=== PATIENT | male | born 1950 | race Caucasian/White ===

== ENCOUNTER 2023-04-26 10:47 | Outpatient (CLI) | payer MEDICARE, SELFPAY ==
[2023-04-26 11:18] LABS: Hematocrit 46.7 % (42.0-52.0); Hemoglobin 16.3 g/dL (14.0-18.0)
--- NOTE | 2023-04-26 11:22 | ECG_ITS ---
Measurements Intervals [place] Rate: 68 P: 61 VT: 169 QRS: 36 QRSD: 105 T: 30 QT: 391 QTc: 418 Interpretive Statements SINUS RHYTHM ATRIAL PREMATURE COMPLEX BORDERLINE ECG NO PREVIOUS ECG AVAILABLE FOR COMPARISON Electronically Signed On 04-26-2023 12:13:44 CDT by Butch Oconnor D.O.
[2023-04-26 11:29] LABS: Albumin Level 4.6 g/dL (3.5-5.1); Estimated Glomerular Filt Rate > 60
== END 2023-04-26 10:48 | disposition home or self-care (01) ==
LOC: ANHLAB 10:49
PROVIDERS: PCP Internal Medicine; Visit Provider Orthopaedic Surgery
DX: M16.12 Unilateral primary osteoarthritis, left hip (principal); Z92.89 Personal history of other medical treatment
CPT/HCPCS: 36415; 82040; 82565; 85014; 85018; 93005

== ENCOUNTER 2023-06-12 10:54 | Outpatient (CLI) | payer MEDICARE, SELFPAY ==
[2023-06-12 12:15] LABS: Basophils Absolute Auto 0.1 K/mm3 (0.0-0.1); Eosinophils Absolute Auto 0.1 K/mm3 (0-0.3); Eosinophils Percent Auto 2.3 % (0-4.4); Hematocrit 48.9 % (42.0-52.0); Hemoglobin 16.8 g/dL (14.0-18.0); Immature Granulocyte Absolute 0.02 K/mm3 (0.00-0.031); Immature Granulocyte Percent A 0.3 % (0-0.5); Lymphocytes Absolute Auto 1.83 K/mm3 (0.9-3.2); Lymphocytes Percent Auto 30.1 % (18.3-44.2); Mean Corpuscular HGB Conc 34.4 g/dl (32-36); Mean Corpuscular Hemoglobin 32.1 pg (26-34); Mean Corpuscular Volume 93.5 fl (80-100); Mean Platelet Volume 8.8 fl (7.4-10.4); Monocytes Absolute Auto 0.5 K/mm3 (0.1-0.6); Monocytes Percent Auto 7.9 % (2.6-8.5); Neutrophils Absolute Auto 3.5 K/mm3 (1.3-6.7); Neutrophils Percent Auto 58.4 % (45.5-73.1); Platelet Count Result 200 k/mm3 (150-375); Red Blood Count 5.23 M/mm3 (4.6-6.20); Red Cell Distribution Width 12.3 % (11.5-14.5); White Blood Count 6.1 K/mm3 (4.5-10.0)
[2023-06-12 12:22] LABS: Albumin Level 4.5 g/dL (3.5-5.1); Estimated Glomerular Filt Rate > 60; Glucose 109 mg/dL (65-110)
[2023-06-12 12:24] LABS: Urine Cotinine NEGATIVE
[2023-06-12 12:45] LABS: Hemoglobin A1C 5.2 % (<5.7)
== END 2023-06-12 10:55 | disposition home or self-care (01) ==
PROVIDERS: PCP Internal Medicine; Visit Provider Orthopaedic Surgery
DX: Z01.812 Encounter for preprocedural laboratory examination (principal); M16.12 Unilateral primary osteoarthritis, left hip
CPT/HCPCS: 80307; 82040; 82565; 82947; 83036; 85025; 87081

== ENCOUNTER 2023-06-21 02:44 | Day surgery (SDC) | payer MEDICARE, SELFPAY ==
[2023-06-14 08:50] VITALS: BMI 29.9
--- NOTE | 2023-06-14 09:07 | PC.NURSE ---
Report to the Outpatient Waiting Room, entrance under the green pavilion located off [facility], at time _6:30AM on date __06/21/23 . Planned Procedure Time: __8:30AM . Time changes happen often and if your time is changed the preop area will call you the afternoon before. - You and your visitor will be asked to self-screen and do not enter if you have any COVID symptoms. - A mask is optional within the hospital at this time. Patients may have CLEAR LIQUIDS ONLY ON DAY PRIOR TO SURGERY. NOTHING BY MOUTH AFTER MIDNIGHT. Take the following medications with a SIP of water the morning of surgery: ____NONE DO NOT STOP ANY OF YOUR OTHER PRESCRIPTION MEDICATIONS PRIOR TO SURGERY ?EXCEPT THE FOLLOWING Medications to discontinue per physician NONE Date to take last dose Please no make-up, nail nigerian, hairspray, perfume, deodorant, or body powder the day of surgery. No jewelry (including any body piercings) or valuables the day of surgery, leave them at home. Please take a shower or bath the night before, or the morning of, surgery with an antibacterial soap. Wear comfortable, loose fitting clothing. Children are encouraged to wear pajamas. - Jewelry must be removed prior to entering the operating room. Rings and piercings that are not removed may be cut off. - The hospital will not accept responsibility for valuables. - Please leave all valuables, including medications, at home the day of surgery. If you are going home after surgery, a licensed limousine driver must drive you home. - NO public transportation without another adult if you receive anesthesia. - We recommend that an adult stay with you for 24 hours following discharge. - We also recommend that you do not drive, make important decision, drink alcoholic beverages, or take any drugs that were not prescribed by your health care provider for at least 24 hours after your discharge time. Follow any additional instructions given to you from your surgeon. FLEETS ENEMA NIGHT BEFORE AND MORNING OF SURGERY. If you or anyone in your household have experienced Covid symptoms in the past week, please notify your surgeon or the nurse liaison at the phone number below for possible testing. Telephone instructions given to __PATIENT and asked if any additional questions and then verbalized understanding. Patient advised to call surgeon office or pre surgery nurse liaison [phone] if any additional questions.
--- NOTE | 2023-06-20 09:53 | WPDANESEPPF ---
Anes - Initial Pre Proc Eval Procedure: Operation Date: 06/21/23 08:30 Proposed Procedures p Rectal Examination Under Anesthesia, Possible Rubber Band Ligation of Internal Hemorrhoids - Wu Cheung MD Date/Time: 06/20/23 09:53 Surgeon: Wu Cheung MD Pre Op Diagnosis: rectal pain, internal hemorrhoids Patient Data Age: 72 Gender: M Height: 1.83 m Weight: 100 kg Allergies Allergy/AdvReac Type Severity Reaction Status Date / Time No Known Allergies Allergy Verified 06/21/23 06:59 Home Medications Medication Instructions Recorded Confirmed Type lovastatin 20 mg tablet 20 mg PO HS 04/13/23 06/21/23 History acetaminophen 500 mg capsule 1,000 mg PO Q6H PRN Pain 06/12/23 06/21/23 History ibuprofen 200 mg-diphenhydramine 2 cap PO HS 06/12/23 06/21/23 History HCl 25 mg capsule (Ibuprofen PM) ibuprofen 400 mg tablet 400 mg PO Q6H PRN Pain 06/12/23 06/21/23 History meloxicam 7.5 mg tablet 7.5 mg PO PRN PRN Pain 06/12/23 06/21/23 History calcium carbonate 200 mg calcium 200 mg PO BID PRN Indigestion 06/14/23 06/21/23 History (500 mg) chewable tablet (Tums) Patient hx anesthesia problems: none Family hx anesthesia problems: none Results Review: All pre-operative results and documents have been reviewed as part of the pre-operative evaluation. [facility] Past Medical History Medical History High cholesterol History of stress test (~2002) Kidney stones Surgical History Surgical History History of appendectomy (~1961) History of hernia repair (~1960) Hx of excision of dermoid cyst (~2009) Infected Cyst - Back Family History Family History Mother Colon cancer Father Heart disease Social History Social History Smoking status: Never smoker Additional smoking assessment comments: DENIES ANY FORM OF TOBACCO USE Alcohol intake: current Drinks per week: 10 Substance use: never Lack of Transportation: No Lack of Food: Never True Current Housing: I Have Housing Concerned About Future Housing: No Difficulty Paying Gas/Electric Bills: No Difficulty Paying for Meds: No Currently Unemployed: No Education: Master's Degree or Higher Difficulty w/ Childcare or Family Care: No Living arrangements: with family Additional living arrangements comments: SPOUSE Spiritual care concerns: No Anes - Eval Final PreProcedure Day of Procedure 06/20/23 09:53 Patient weight: overweight Heart: regular rate and rhythm Lungs: clear to auscultation Airway: Mallampati scale class II Neurological: alert and oriented Last oral intake: >/= 8 hours ASA classification: II Emergent: no Anesthetic plan: proceed Anesthesia type and monitoring: general ETT and standard monitoring Results Review: All pre-operative results and documents have been reviewed as part of the pre-operative evaluation. Informed Consent: The patient's anesthetic plan and its attendant risks and benefits were discussed with the patient/family/POA. Questions were solicited and answers provided to the satisfaction of the patient/family/POA.
[2023-06-21] VITALS (7 sets, daily range): BP systolic 102–141; BP diastolic 62–80; PULSE 60–79; RESP 11–18; TEMP 36.6–36.8; O2SAT 98–100
[2023-06-21] MEDS: ACETAMINOPHEN 500 MG TABLET 1000 MG PO (07:04)
[2023-06-21] MEDS: LACTATED RINGERS 1,000 ML 30 ML IV CONT ×2 (07:11→09:05)
[2023-06-21] MEDS: KETOROLAC 15 MG/ML VIAL (*BKC) IV PUSH (07:32)
--- NOTE | 2023-06-21 08:00 | WPDHPUPDATE1 ---
History and Physical Update Update Date/Time: 06/21/23 08:00 History and Physical has been reviewed, including an updated exam of the patient. There are NO changes in the patient's condition. Risks, benefits, and alternatives have been discussed and questions answered. Patient agrees to proceed with procedure.
[2023-06-21] MEDS: ceFAZolin 2 GM/D5W 50 ML 2 GM/50 ML BAG IVPB (08:29)
[2023-06-21] MEDS: BUPIVACAINE/EPINEPHRINE 0.25% 10 ML VIAL 30 ML INFILTRATE (08:56)
--- NOTE | 2023-06-21 09:35 | P.OP_ITS ---
Procedure Note - Detailed Date of Procedure 06/21/23 Pre-op Diagnosis rectal pain, internal hemorrhoids Post-op Diagnosis Same Procedure Performed Rectal exam under anesthesia, rubber-band ligation internal hemorrhoids all 3 complexes Surgeon Wu Cheung MD Anesthesia General and Local (0.25% Marcaine with epinephrine) Indications Patient has had complaints of rectal pain and some protrusion of hemorrhoids. He has had no bleeding. Exam showed no external hemorrhoids but some bulky internal hemorrhoidal tissue. He is taken to surgery now for rectal exam under anesthesia and possible rubber-band ligation of internal hemorrhoids. Findings He had internal hemorrhoids at all 3 locations. The largest was in the left lateral but smaller hemorrhoids were noted at the right anterior and right posterior locations. All were rubber-band ligated. There was no evidence of anal canal polyp or malignancy Description of Procedure Patient was taken to surgery and induced into general anesthesia. He was then turned and placed in prone dontae-knife position. The buttocks were taped apart. Prep and drape was carried out. Digital exam was carried out and there were some internal hemorrhoids noted. Small Hill-Nguyen anoscope was introduced. Internal hemorrhoids were noted but no other abnormalities. The left lateral internal hemorrhoid was rubber-band ligated 1st. I went to the patient's right side and then rubber-band ligated both the right anterior and right posterior internal hemorrhoids. No other significant findings were noted. Local anesthetic was infiltrated intra- sphincteric bilaterally using a total 20 cc. Wound was dressed with Xeroform gauze fluffs and tape. Patient was returned to a supine position, awakened extubated and taken to recovery in good condition. Sponge needle counts were correct x2. Estimated Blood Loss -1 Drains No Packing No Pathology None sent Complications No immediate complications Condition Stable Disposition PACU [facility] Billing Surgery - Charge Forward: Surgery Billing (Rectal exam under anesthesia, rubber- band ligation internal hemorrhoids.)
[2023-06-21] MEDS: oxyCODONE HCL (*CRX) 5 MG TAB IR PO (10:16)
--- NOTE | 2023-06-21 10:47 | SUR.PHASEII ---
1020 PATIENT C/O'ING BILAT CALF PAIN. NO REDNESS; STRONG PULSES. PATIENT UP TO WALK IN [place] WHICH HELPED SLIGHTLY. ENCOURAGED TO DO ANKLE EXERCISES TO REDUCE CRAMPING.
== END 2023-06-21 11:06 | disposition home or self-care (01) ==
PROVIDERS: PCP Internal Medicine; Visit Provider Surgery
PROC: (CPT 46221; principal; 2023-06-21 08:30)
DX: K64.8 Other hemorrhoids (principal); E78.00 Pure hypercholesterolemia, unspecified
CPT/HCPCS: 46221; 80307; 82040; 82565; 82947; 83036; 85025; 87081; A9270; C9290; J0330; J0690; J1100; J1885; J2405; J2704; J3010; J7120

== ENCOUNTER 2023-07-11 04:15 | Day surgery (SDC) | payer MEDICARE, SELFPAY ==
[2023-06-12 11:03] VITALS: BMI 29.9
--- NOTE | 2023-06-12 11:30 | PC.NURSE ---
Report to the Outpatient Waiting Room, entrance under the green pavilion located off [facility], at time __0600 on date __07/11/23 . Planned Procedure Time: __0730 . Time changes happen often and if your time is changed the preop area will call you the afternoon before. - You and your visitor will be asked to self-screen and do not enter if you have any COVID symptoms. - A mask is optional within the hospital at this time. Patients may have clear liquids (water, carbonated beverages, clear teas, apple juice) until 3 hours prior to surgery with a maximum of 20 ounces. - No food from midnight until time of surgery - Infants may have breast milk until 4 hours before surgery, infant formula 6 hours prior to surgery. - Children will be allowed to drink immediately following surgery. If applicable, please bring a bottle or sippy cup to assist with drinking. Juice, water, soda, and popsicles are readily available. For infants on formula, please bring formula the day of surgery. Pacifiers are allowed. Take the following medications with a SIP of water the morning of surgery: __NONE DO NOT STOP ANY OF YOUR OTHER PRESCRIPTION MEDICATIONS PRIOR TO SURGERY ?EXCEPT THE FOLLOWING Medications to discontinue per physician __MELOXICAM,IBUPROFEN 7 DAYS PRE OP PER DR DAVIS.LAST DOSE 07/03/23 Please no make-up, nail cambodian, hairspray, perfume, deodorant, or body powder the day of surgery. No jewelry (including any body piercings) or valuables the day of surgery, leave them at home. Please take a shower or bath the night before, or the morning of, surgery with an antibacterial soap. Wear comfortable, loose fitting clothing. Children are encouraged to wear pajamas. - Jewelry must be removed prior to entering the operating room. Rings and piercings that are not removed may be cut off. - The hospital will not accept responsibility for valuables. - Please leave all valuables, including medications, at home the day of surgery. If you are going home after surgery, a licensed bulk delivery driver must drive you home. - NO public transportation without another adult if you receive anesthesia. - We recommend that an adult stay with you for 24 hours following discharge. - We also recommend that you do not drive, make important decision, drink alcoholic beverages, or take any drugs that were not prescribed by your health care provider for at least 24 hours after your discharge time. Follow any additional instructions given to you from your surgeon. If you or anyone in your household have experienced Covid symptoms in the past week, please notify your surgeon or the nurse liaison at the phone number below for possible testing. VERBAL AND WRITTEN instructions given to __PATIENT AND OTILIOE and asked if any additional questions and then verbalized understanding. Patient advised to call surgeon office or pre surgery nurse liaison [phone] if any additional questions.
[2023-06-12 11:49] VITALS: BP 141/84; PULSE 73; RESP 18; TEMP 37.1; O2SAT 99
[2023-07-11] VITALS (17 sets, daily range): BP systolic 112–138; BP diastolic 55–78; PULSE 60–79; RESP 10–18; TEMP 36.1–36.9; O2SAT 92–100
--- NOTE | ~2023-07-11 | XR_ITS ---
EXAMINATION: XR hip LT min 2V DATE: 07/11/2023 10:35 INDICATION: Left hip arthroplasty. Postop. TECHNIQUE: 2 views of left hip were obtained. COMPARISON: Left hip radiographs 04/20/2023 FINDINGS: There is a total left hip arthroplasty in near-anatomic alignment. No fracture. There is ga s in the soft tissues, consistent with recent surgery. IMPRESSION: 1. Total left hip arthroplasty in near-anatomic alignment. Reviewed, dictated and finalized at location A.
[2023-07-11] MEDS: LACTATED RINGERS 1,000 ML 30 ML IV CONT ×2 (06:44→10:09)
[2023-07-11] MEDS: ACETAMINOPHEN 500 MG TABLET 1000 MG PO ×2 (06:51→20:56)
--- NOTE | 2023-07-11 06:59 | WPDANESEPPF ---
Anes - Initial Pre Proc Eval Procedure: Operation Date: 07/11/23 07:30 Proposed Procedures p Left Total Hip Arthroplasty - Rohit Garcia MD Date/Time: 07/11/23 06:59 Surgeon: Rohit Garcia MD Pre Op Diagnosis: primary oa left hip Patient Data Age: 72 Gender: M Height: 1.83 m Weight: 97.2 kg Last Vital Signs Temp 36.3 C L 07/11/23 06:11 Pulse 70 07/11/23 06:11 Resp 16 07/11/23 06:11 BP 137/72 07/11/23 06:11 Pulse Ox 96 07/11/23 06:11 O2 Del Method Room Air 07/11/23 06:11 Allergies Allergy/AdvReac Type Severity Reaction Status Date / Time No Known Allergies Allergy Verified 07/11/23 06:25 Home Medications Medication Instructions Recorded Confirmed Type lovastatin 20 mg tablet 20 mg PO HS 04/13/23 07/11/23 History acetaminophen 500 mg capsule 1,000 mg PO Q6H PRN Pain 06/12/23 07/11/23 History ibuprofen 200 mg-diphenhydramine 2 cap PO HS 06/12/23 07/11/23 History HCl 25 mg capsule (Ibuprofen PM) ibuprofen 400 mg tablet 400 mg PO Q6H PRN Pain 06/12/23 07/11/23 History meloxicam 7.5 mg tablet 7.5 mg PO PRN PRN Pain 06/12/23 07/11/23 History calcium carbonate 200 mg calcium 200 mg PO PRN PRN Indigestion 06/14/23 07/11/23 History (500 mg) chewable tablet (Tums) Patient hx anesthesia problems: none Family hx anesthesia problems: none Results Review: All pre-operative results and documents have been reviewed as part of the pre-operative evaluation. [facility] Past Medical History Medical History High cholesterol History of stress test (~2002) Kidney stones Surgical History Surgical History History of appendectomy (~1961) History of hemorrhoidectomy 06/21/2023 - rectal EUA, rubber-band ligation internal hemorrhoids all 3 complexes History of hernia repair (~1960) Hx of excision of dermoid cyst (~2009) Infected Cyst - Back Family History Family History Mother Colon cancer Father Heart disease Social History Social History Smoking status: Never smoker Additional smoking assessment comments: DENIES ANY FORM OF TOBACCO USE Alcohol intake: current Drinks per week: 10 Substance use: never Lack of Transportation: No Lack of Food: Never True Current Housing: I Have Housing Concerned About Future Housing: No Difficulty Paying Gas/Electric Bills: No Difficulty Paying for Meds: No Currently Unemployed: No Education: Master's Degree or Higher Difficulty w/ Childcare or Family Care: No Living arrangements: with family Additional living arrangements comments: SPOUSE Spiritual care concerns: No Anes - Eval Final PreProcedure Day of Procedure 07/11/23 06:59 Patient weight: overweight Heart: regular rate and rhythm Lungs: clear to auscultation Airway: Mallampati scale class II Neurological: alert and oriented Last oral intake: >/= 8 hours ASA classification: II Emergent: no Anesthetic plan: proceed Anesthesia type and monitoring: general ETT and standard monitoring Results Review: All pre-operative results and documents have been reviewed as part of the pre-operative evaluation. Informed Consent: The patient's anesthetic plan and its attendant risks and benefits were discussed with the patient/family/POA. Questions were solicited and answers provided to the satisfaction of the patient/family/POA.
--- NOTE | 2023-07-11 07:08 | WPDHPUPDATE1 ---
History and Physical Update Update Date/Time: 07/11/23 07:08 History and Physical has been reviewed, including an updated exam of the patient. There are NO changes in the patient's condition. Risks, benefits, and alternatives have been discussed and questions answered. Patient agrees to proceed with procedure.
[2023-07-11] MEDS: TRANEXAMIC ACID 1,000MG/ISO100 1,000 MG/100 ML BAG 200 MG IVPB (07:11)
[2023-07-11] MEDS: ceFAZolin 2 GM/D5W 50 ML 2 GM/50 ML BAG IVPB (07:26)
--- NOTE | 2023-07-11 10:25 | W.PM.PROC2 ---
Procedure Note - Detailed Date of Procedure 07/11/23 Pre-op Diagnosis primary oa left hip Post-op Diagnosis Same Procedure Performed Left Total Hip Arthroplasty Surgeon Rohit Garcia MD Anesthesia General Findings Excellent bone quality. Description of Procedure The patient was given preoperative antibiotics. A general anesthetic was administered. The patient was carefully placed in the lateral decubitus position on the PEG board. The shoulders and hips were carefully positioned for component and leg length positioning reference. The hip was prepped and draped in the usual sterile fashion. A longitudinal incision was created over the posterior aspect of the greater trochanter. Careful dissection was brought down through the deep fascia with electrocautery. A minimally invasive optimized posterior approach to the hip was performed. The short external rotators and capsule were taken down in an L-shaped capsulotomy. The tissue was tagged for later repair using number 2 high strength suture. The femoral neck was measured and taken in situ. The femoral head was removed. The acetabulum was carefully exposed. The inferior capsule was released. The labrum was resected. The acetabulum was sequentially reamed to the intended cup size. The cup was impacted into position with excellent press-fit. Typical anatomic landmarks, including the bony contact points as well as the inferior transverse acetabular ligament were used to confirm cup positioning with preoperative templating. Attention was turned to the femur, which was carefully exposed. The hip was reamed and then broached sequentially. Excellent press-fit was obtained with the broach. The hip was trialed. Measurements were utilized, including the lesser trochanter as well as the center of the femoral head and the tip of the trochanter, and excellent assessment of the offset and leg lengths were confirmed. The real component was impacted into position. Trialing confirmed appropriate leg length and offset with soft tissue balancing as well apparent feel of the leg, both at the knee and the heel. Soft tissues were assessed using the the iliotibial band. Reduction of the posterior capsule and external rotators were also used as a secondary assessment. The hip was copiously irrigated with pulsatile lavage antibiotic solution periodically throughout the procedure. The real components were then assembled and reduced. The hip was stable throughout typical maneuvers, including extension, external rotation to 70 degrees, the position of sleep as well as flexion to 90 degrees with internal rotation past 45 degrees. The shake test confirmed stability without impingement. Osteophytes were removed as necessary. The short external rotators and capsule were repaired back to the posterior trochanter through drill holes. The deep fascia was repaired with running number 2 Quill suture, followed by 0 Stratafix suture and 2-0 Stratafix suture in the dermis. Steri-Strips were placed on the skin, followed by a sterile silver occlusive dressing. There were no complications. Meticulous hemostasis was maintained with the AquaMantys device. The patient was brought to the recovery room in stable condition. There were no complications. Implants The Accolade II hip stem, 132 degree size 7 , was utilized with excellent press-fit. The 58 mm Trident II acetabular component was impacted with excellent press-fit stability. The -5, 36 mm Biolox ceramic femoral head was utilized.10 degree elevated liner. Estimated Blood Loss 200 Drains No Packing No Pathology None sent Complications No immediate complications Condition Stable Disposition PACU [facility] Billing Surgery - Charge Forward: Surgery Billing
[2023-07-11] MEDS: fentaNYL CITRATE INJ (*CRX) 100 MCG/2 ML VIAL 25 MCG IV PUSH ×7 (10:47→11:49)
--- NOTE | 2023-07-11 12:07 | ADMGEN ---
This patient, Todd Avina, was admitted to [facility] Surg Room 313-01. Patient/family oriented to hospital policies and general routines including ID bracelet, bed and alarms, visiting hours, pain management, procedures, bathroom and other care routines, personal items, smoking policy, room service/diet, and visiting hours. Information on how to activate the Rapid Response Team has been discussed. Patient/Family are encouraged to report perceived risks to care and to ask questions if they do not understand what they are told or what they should do.
[2023-07-11] MEDS: SODIUM CHLORIDE 0.9% IV 1,000 ML 125 ML IV CONT (12:27)
[2023-07-11] MEDS: ceFAZolin 1 GM/NS 50 ML 1 GM/50 ML BAG IVPB (15:55)
[2023-07-11] MEDS: SENNA/DOCUSATE SODIUM TABLET 2 TAB PO (16:00)
[2023-07-11] MEDS: ASPIRIN 81 MG ENTERIC TABLET PO (16:00)
[2023-07-11] MEDS: oxyCODONE HCL (*CRX) 5 MG TAB IR PO ×2 (17:15→20:57)
[2023-07-11] MEDS: LOVASTATIN 20 MG TABLET PO (20:49)
[2023-07-12] MEDS: oxyCODONE HCL (*CRX) 5 MG TAB IR 10 MG PO ×3 (01:16→10:07)
[2023-07-12 03:45] VITALS: BP 120/63; PULSE 83; RESP 16; TEMP 36.7; O2SAT 96
[2023-07-12 06:18] LABS: Basophils Percent Auto 0.3 % (0.2-1.2); Eosinophils Percent Auto 0.2 % (0-4.4); Hematocrit 39.4 % (42.0-52.0); Hemoglobin 13.5 g/dL (14.0-18.0); Immature Granulocyte Absolute 0.05 K/mm3 (0.00-0.031); Immature Granulocyte Percent A 0.5 % (0-0.5); Lymphocytes Absolute Auto 1.75 K/mm3 (0.9-3.2); Lymphocytes Percent Auto 17.3 % (18.3-44.2); Mean Corpuscular HGB Conc 34.3 g/dl (32-36); Mean Corpuscular Hemoglobin 32.4 pg (26-34); Mean Corpuscular Volume 94.5 fl (80-100); Mean Platelet Volume 8.8 fl (7.4-10.4); Monocytes Absolute Auto 0.9 K/mm3 (0.1-0.6); Monocytes Percent Auto 8.5 % (2.6-8.5); Neutrophils Absolute Auto 7.4 K/mm3 (1.3-6.7); Neutrophils Percent Auto 73.2 % (45.5-73.1); Platelet Count Result 166 k/mm3 (150-375); Red Blood Count 4.17 M/mm3 (4.6-6.20); Red Cell Distribution Width 12.2 % (11.5-14.5); White Blood Count 10.1 K/mm3 (4.5-10.0)
[2023-07-12 06:38] LABS: Anion Gap 1 mmol/L (8-16); Blood Urea Nitrogen 13 mg/dL (9-20); Carbon Dioxide 28 mmol/L (22-30); Chloride 104 mmol/L (98-107); Estimated CRCL calculation 82 ml/min; Estimated Glomerular Filt Rate > 60; Glucose 92 mg/dL (65-110); Potassium 3.9 mmol/L (3.4-5.0); Sodium 133 mmol/L (137-145)
[2023-07-12 07:00] VITALS: BP 136/48; PULSE 71; RESP 16; TEMP 36.1; O2SAT 97
[2023-07-12] MEDS: ceFAZolin 1 GM/NS 50 ML 1 GM/50 ML BAG IVPB ×2 (07:47)
[2023-07-12] MEDS: predniSONE 5 MG TABLET PO (08:20)
[2023-07-12] MEDS: MELOXICAM 7.5 MG TABLET PO (08:20)
[2023-07-12] MEDS: SENNA/DOCUSATE SODIUM TABLET 2 TAB PO (08:20)
[2023-07-12] MEDS: ASPIRIN 81 MG ENTERIC TABLET PO (08:20)
[2023-07-12] MEDS: polyethylene glycoL 3350 17 GM POWD.PACK PO (08:20)
[2023-07-12 08:37] VITALS: BP 128/56
--- NOTE | 2023-07-12 08:37 | PM.DS ---
DS: Admitting Diagnosis Discharge Date 07/12/23 Admitting Diagnosis OA Left hip DS: Discharge Diagnosis Discharge Diagnosis (1) Status post total hip replacement, left: Code(s): Z96.642 - Presence of left artificial hip joint Status: Acute Assessment and Plan: Postop day 1: Total hip arthroplasty. Patient tolerated procedure well. No complications. Pain manageable with pain medication. No numbness or tingling. We had a lengthy discussion regarding postoperative wound care, limitations, expectations, and exercises. Patient shows good understanding. Patient has had initial physical therapy and is tolerating it well. DVT prophylaxis: 81 mg baby aspirin b.i.d. for 14 days. Short frequent walks. Pain medication: Percocet. Meloxicam. Patient has followup appointment with Dr. Garcia in 3 weeks DS: Summary Hospital Course Reason for hospitalization: Total hip arthroplasty Hospital Course: Patient tolerated procedure well. Has had initial PT/OT. Patient did have bleeding from incision site. Dressing removed, cleaned with Betadine, steri strips reapplied, dressing reapplied. No drainage at the time of discharge. Status at Discharge Functional status at discharge: uses cane/walker Overall status at discharge: patient is progressing back to baseline Time Spent with Patient Time attestation: Total time spent providing and/or coordinating discharge services: Exam Narrative: 72 y/o overweight male. Resting comfortably in bed. Wearing compression socks bilaterally. Dressing dry and intact with no drainage. Moderate swelling. No ecchymosis. No erythema. No hematoma. Range of motion limited due to pain. Calf nontender. Thigh nontender. Neurologic status intact. No varicosities. Distal pulses palpable. DS: Data Data Completed and Pending Labs on day of discharge: Labs from last 24 hours 07/12/23 05:56 WBC 10.1 H RBC 4.17 L Hgb 13.5 L D Hct 39.4 L MCV 94.5 MCH 32.4 MCHC 34.3 RDW 12.2 Plt Count 166 MPV 8.8 Immature Gran % (Auto) 0.5 Neut % (Auto) 73.2 H Lymph % (Auto) 17.3 L Bureau % (Auto) 8.5 Eos % (Auto) 0.2 Baso % (Auto) 0.3 Lymph # (Auto) 1.75 Bureau # (Auto) 0.9 H Eos # (Auto) 0.0 Baso # (Auto) 0.0 Abs Immat Gran (auto) 0.05 H Absolute Neuts (auto) 7.4 H Absolute Nucleated RBC 0.0 Nucleated RBC % 0.0 Sodium 133 L Potassium 3.9 Chloride 104 Carbon Dioxide 28 Anion Gap 1 L BUN 13 Creatinine 0.80 Estim Creat Clear Calc 82 Estimated GFR > 60 Glucose 92 Calcium 8.0 L Discharge Plan Discharge Patient Disposition: Home, Self-Care Discharge Instructions: See green instruction sheets Patient Instructions: Pain Management (DC), Total Hip Replacement (DC) Follow-up/Referrals: Jessica Barron PA [Physician [employer] Developer] - Discharge Medications: New aspirin 81 mg tablet,delayed release (DR/EC) 81 mg PO BID 14 Days Qty: 28 0RF oxycodone-acetaminophen 5-325 mg tablet 1 - 2 tablet PO Q4-6H MDD 6 PRN (Reason: pain) Qty: 30 0RF Continued lovastatin 20 mg tablet 20 mg PO HS calcium carbonate [Tums] 200 mg calcium (500 mg) Tablet,Chewable 200 mg PO PRN PRN (Reason: Indigestion) Ibuprofen PM 200-25 mg Capsule 2 cap PO HS ibuprofen 400 mg Tablet 400 mg PO Q6H PRN (Reason: Pain) acetaminophen 500 mg Capsule 1,000 mg PO Q6H PRN (Reason: Pain) meloxicam 7.5 mg tablet 7.5 mg PO PRN PRN (Reason: Pain)
== END 2023-07-12 10:55 | disposition home or self-care (01) ==
LOC: ANHSURGERY 05:54 → ANH3MEDSUR 11:57
PROVIDERS: PCP Internal Medicine; Visit Provider Orthopaedic Surgery
PROC: (CPT 27130; principal; 2023-07-11 07:30)
DX: M16.12 Unilateral primary osteoarthritis, left hip (principal); E78.00 Pure hypercholesterolemia, unspecified
CPT/HCPCS: 27130; 36415; 73502; 80048; 85025; 86850; 86900; 86901; 97110; 97116; 97161; 97165; 97530; 97535; A9270; C1776; J0171; J0690; J1100; J1170; J1885; J2250; J2270; J2405; J2704; J2795; J3010; J7030; J7120; J7512

== ENCOUNTER 2023-10-18 11:19 | Outpatient (CLI) | payer MEDICARE, SELFPAY ==
[2023-10-18 12:47] LABS: Hematocrit 50.5 % (42.0-52.0); Hemoglobin 16.8 g/dL (14.0-18.0)
[2023-10-18 12:49] LABS: Albumin Level 4.7 g/dL (3.5-5.1); Estimated Glomerular Filt Rate > 60; Glucose 90 mg/dL (65-110)
== END 2023-10-18 11:20 | disposition home or self-care (01) ==
PROVIDERS: PCP Internal Medicine; Visit Provider Orthopaedic Surgery
DX: E78.00 Pure hypercholesterolemia, unspecified (principal); Z92.89 Personal history of other medical treatment; M16.12 Unilateral primary osteoarthritis, left hip; K64.8 Other hemorrhoids
CPT/HCPCS: 36415; 82040; 82565; 82947; 85014; 85018

== ENCOUNTER 2023-11-15 09:00 | Outpatient (RCR) | payer MEDICARE, SELFPAY ==
--- NOTE | 2023-10-18 17:15 | OPREHPOC ---
Outpatient Therapy Plan of Care This is a Multidisciplinary Plan of Care that may contain components documented by all disciplines (PT, OT, and ST.) PT Problem 1 PT Problem #1 Knowledge Deficit PT Goal 1 Goal Pt to be IND with issued HEP Target Visit 8 PT Problem 2 PT Problem #2 Pain PT Goal 1 Goal Pt to report L hip pain no greater than 3/10 in the last week Target Visit 8 PT Goal 2 Goal Pt to report 75% improvement in overall symptoms Target Visit 8 PT Problem 3 PT Problem #3 Impaired Range of Motion PT Goal 1 Goal Pt to report no stretch with passive hip extension to 10 deg Target Visit 8 PT Goal 2 Goal Pt to report equal stretch with ITB strength. Target Visit 8 PT Problem 4 PT Problem #4 Impaired Gait PT Goal 1 Goal Pt to report returning to his 2 mile walk without an increase in symptoms Target Visit 8
--- NOTE | 2023-10-18 17:15 | PTOPEVAL1 ---
Assessment and note entered by Tamika Plata, PT, DPT Evaluation Information Assessment Status Evaluation Diagnosis L LYLE Onset 07/11/23 Subjective Information Pt states he had a L LYLE on 07/11/23 and is due to have a R LYLE mid November. He states his surgery went great and he was doing well, until he quickly got into a car from the passengers side and felt a big pull in the L hip. His doctor cleared this and discontinues his hip precautions. Pt states currently it feels like a strong muscle pull that will get better at times but has not gone away. He currently uses a cane for long distance walking. Reported Pain Level Pain Score 0: Self Report Assessment PT Clinical Summary Todd presents to therapy today for his initial evaluation following a L LYLE on 07/11/23 and a later, recent hip strain. Today he demonstrates tenderness and weakness in his L hip flexor when compared to his right. He has muscle soreness with passive hip extension stretching on the L. He reports having a decreased walking tolerance compared to post-op. Skilled therapy services are indicated to improve mobility and strength, to manage pain, and to return to PLOF. Plan of Care Interventions Electrical Stimulation,Gait Training,Hot Pack/Cold Pack,Manual Therapy,Neuro Re-education,Patient/ Caregiver Educati,Therapeutic Activities, Therapeutic Exercise PT Services Indicated Yes Treatment Frequency and 2x/wk for 8 visits Duration These treatments will address the objective and functional deficits as defined above. The patient will be advanced safely and appropriately in order for the patient to progress towards his/her prior level of function. Additional exercises will be introduced and as well as a comprehensive home exercise program upon discharge, if needed, ?to ensure carryover of functional gains achieved in the clinic. This treatment plan has been reviewed and agreement upon by the patient.
--- NOTE | 2023-11-15 10:16 | PTOPDC ---
Assessment and note entered by Tamika Plata, PT, DPT Evaluation Information Assessment Status Discharge Diagnosis L LYLE Onset 07/11/23 Subjective Information Pt states things are going really well. He states it feels like his strength has really improved. He states he will still randomly get a little twing in his hip. He states he feels a little stiff in the L hip first thing in the morning but this goes away within less than a minute of being up. Reported Pain Level Pain Score 0: Self Report Assessment PT Clinical Summary Todd presents to therapy today for his progress report following 9 visits of skilled therapy to treat his hip strain. Today he demonstrates good hip LE and strength loli. He reports a 90% improvement in his pain reports. He was educated on a HEP to complete leading up to his R TKA and to return when able afterwards. He has met or progressed well towards all his therapy goals and no longer requires skilled services. He will be discharged at this time. Plan of Care PT Services Indicated No
== END 2023-11-15 11:52 | disposition home or self-care (01) ==
LOC: ANHGOSHPT 09:00
PROVIDERS: PCP Internal Medicine; Visit Provider Physician Assistant Surgical
DX: Z47.1 Aftercare following joint replacement surgery (principal); Z96.642 Presence of left artificial hip joint
CPT/HCPCS: 97110; 97112; 97140; 97161; 97530

== ENCOUNTER 2023-11-30 13:17 | Outpatient (CLI) | payer MEDICARE, SELFPAY ==
[2023-11-30 15:59] LABS: Basophils Absolute Auto 0.1 K/mm3 (0.0-0.1); Eosinophils Absolute Auto 0.2 K/mm3 (0-0.3); Eosinophils Percent Auto 2.7 % (0-4.4); Hematocrit 50.4 % (42.0-52.0); Hemoglobin 16.7 g/dL (14.0-18.0); Immature Granulocyte Absolute 0.02 K/mm3 (0.00-0.031); Immature Granulocyte Percent A 0.3 % (0-0.5); Lymphocytes Absolute Auto 2.08 K/mm3 (0.9-3.2); Lymphocytes Percent Auto 27.2 % (18.3-44.2); Mean Corpuscular HGB Conc 33.1 g/dl (32-36); Mean Corpuscular Hemoglobin 31.1 pg (26-34); Mean Corpuscular Volume 93.9 fl (80-100); Mean Platelet Volume 8.8 fl (7.4-10.4); Monocytes Absolute Auto 0.6 K/mm3 (0.1-0.6); Monocytes Percent Auto 8.4 % (2.6-8.5); Neutrophils Absolute Auto 4.6 K/mm3 (1.3-6.7); Neutrophils Percent Auto 60.4 % (45.5-73.1); Platelet Count Result 217 k/mm3 (150-375); Red Blood Count 5.37 M/mm3 (4.6-6.20); Red Cell Distribution Width 12.4 % (11.5-14.5); White Blood Count 7.6 K/mm3 (4.5-10.0)
[2023-11-30 16:11] LABS: Urine Cotinine NEGATIVE
[2023-11-30 22:16] LABS: Hemoglobin A1C 5.4 % (<5.7)
== END 2023-11-30 13:18 | disposition home or self-care (01) ==
PROVIDERS: PCP Internal Medicine; Visit Provider Orthopaedic Surgery
DX: M16.11 Unilateral primary osteoarthritis, right hip (principal); Z01.818 Encounter for other preprocedural examination
CPT/HCPCS: 80307; 83036; 85025; 86850; 86900; 86901; 87081

== ENCOUNTER 2023-12-04 02:13 | Day surgery (SDC) | payer MEDICARE, SELFPAY ==
--- NOTE | 2023-11-30 12:58 | PC.NURSE ---
Addendum entered by Seda Yeh RN 11/30/23 13:09: MELAINE AWARE LAST DOSE OF MELOXICAM WAS 11/30/23 MAY TAKE TYLENOL IF NEEDED FOR PAIN Original Note: Report to the Outpatient Waiting Room, entrance under the green pavilion located off [facility], at time __1000 on date ___12/04/23____. Planned Procedure Time: __1200 . Time changes happen often and if your time is changed the preop area will call you the afternoon before. - You and your visitor will be asked to self-screen and do not enter if you have any COVID symptoms. - A mask is optional within the hospital at this time. Patients may have clear liquids (water, carbonated beverages, clear teas, apple juice) until 3 hours prior to surgery( 9:00 AM ) with a maximum of 20 ounces. - No food from midnight until time of surgery - Infants may have breast milk until 4 hours before surgery, infant formula 6 hours prior to surgery. - Children will be allowed to drink immediately following surgery. If applicable, please bring a bottle or sippy cup to assist with drinking. Juice, water, soda, and popsicles are readily available. For infants on formula, please bring formula the day of surgery. Pacifiers are allowed. Take the following medications with a SIP of water the morning of surgery: ___NONE DO NOT STOP ANY OF YOUR OTHER PRESCRIPTION MEDICATIONS PRIOR TO SURGERY ?EXCEPT THE FOLLOWING Medications to discontinue per physician __ALL VITAMINS HOLD 3 DAYS PRE OP .LAST DOSE 11/30/23. MELOXICAM HOLD 7 DAYS PRE OP Please no make-up, nail spanish, hairspray, perfume, deodorant, or body powder the day of surgery. No jewelry (including any body piercings) or valuables the day of surgery, leave them at home. Please take a shower or bath the night before, or the morning of, surgery with an antibacterial soap. Wear comfortable, loose fitting clothing. Children are encouraged to wear pajamas. - Jewelry must be removed prior to entering the operating room. Rings and piercings that are not removed may be cut off. - The hospital will not accept responsibility for valuables. - Please leave all valuables, including medications, at home the day of surgery. If you are going home after surgery, a licensed driver/sales workers must drive you home. - NO public transportation without another adult if you receive anesthesia. - We recommend that an adult stay with you for 24 hours following discharge. - We also recommend that you do not drive, make important decision, drink alcoholic beverages, or take any drugs that were not prescribed by your health care provider for at least 24 hours after your discharge time. For Pediatric surgeries, we recommend two adults accompany the child home. Follow any additional instructions given to you from your surgeon. If you or anyone in your household have experienced Covid symptoms in the past week, please notify your surgeon or the nurse liaison at the phone number below for possible testing. Telephone instructions given to _PATIENT and asked if any additional questions and then verbalized understanding. Patient advised to call surgeon office or pre surgery nurse liaison [phone] if any additional questions.
[2023-11-30 13:16] VITALS: BMI 29.8
[2023-12-04] VITALS (13 sets, daily range): BP systolic 111–155; BP diastolic 59–88; PULSE 68–90; RESP 11–24; TEMP 36.1–36.9; O2SAT 94–100; BMI 29.5
--- NOTE | ~2023-12-04 | XR_ITS ---
XR hip RT min 2V DATE: 12/04/2023 14:52 INDICATION: Right total hip replacement TECHNIQUE: Postoperative AP and crosstable lateral views of right hip COMPARISON: 08/30/2023 pelvis and bilateral hip FINDINGS: Status post right femoral head and neck resection and placement of right total hip prosthes is, with normal alignment. No fracture or dislocation. IMPRESSION: Right total hip arthroplasty Reviewed, dictated and finalized at location B. WRAPPER
[2023-12-04] MEDS: ACETAMINOPHEN 500 MG TABLET 1000 MG PO (10:27)
[2023-12-04] MEDS: LACTATED RINGERS 1,000 ML 30 ML IV CONT ×2 (10:40→14:38)
--- NOTE | 2023-12-04 11:12 | WPDANESEPPF ---
Anes - Initial Pre Proc Eval Procedure: Operation Date: 12/04/23 12:00 Proposed Procedures p Right Total Hip Arthroplasty - Rohit Garcia MD Date/Time: 12/04/23 11:12 Surgeon: Rohit Garcia MD Pre Op Diagnosis: primary OA right hip Patient Data Age: 73 Gender: M Height: 1.83 m Weight: 98.8 kg Last Vital Signs Temp 36.9 C 12/04/23 10:52 Pulse 80 12/04/23 10:52 Resp 16 12/04/23 10:52 BP 155/88 H 12/04/23 10:52 Pulse Ox 97 12/04/23 10:52 O2 Del Method Room Air 12/04/23 10:52 Allergies Allergy/AdvReac Type Severity Reaction Status Date / Time No Known Allergies Allergy Verified 12/04/23 10:22 Home Medications Medication Instructions Recorded Confirmed Type lovastatin 20 mg tablet 20 mg PO HS 04/13/23 12/04/23 History acetaminophen 500 mg capsule 1,000 mg PO Q6H PRN Pain 06/12/23 12/04/23 History meloxicam 7.5 mg tablet 7.5 mg PO PRN PRN Pain 06/12/23 12/04/23 History calcium carbonate 200 mg calcium 200 mg PO PRN PRN Indigestion 06/14/23 11/30/23 History (500 mg) chewable tablet (Tums) Patient hx anesthesia problems: none Family hx anesthesia problems: none Results Review: All pre-operative results and documents have been reviewed as part of the pre-operative evaluation. [facility] Past Medical History Medical History High cholesterol History of stress test (~2002) Kidney stones Surgical History Surgical History History of appendectomy (~1961) History of hemorrhoidectomy 06/21/2023 - rectal EUA, rubber-band ligation internal hemorrhoids all 3 complexes History of hernia repair (~1960) History of total left hip arthroplasty (~07/11/23) Hx of excision of dermoid cyst (~2009) Infected Cyst - Back Family History Family History Mother Colon cancer Father Heart disease Social History Social History Smoking status: Never smoker Additional smoking assessment comments: DENIES ANY FORM OF TOBACCO USE Alcohol intake: current Drinks per week: 10 Substance use: never Substance use type: does not use Lack of Transportation: No Lack of Food: Never True Current Housing: I Have Housing Concerned About Future Housing: No Difficulty Paying Gas/Electric Bills: No Difficulty Paying for Meds: No Currently Unemployed: No Education: Master's Degree or Higher Difficulty w/ Childcare or Family Care: No Living arrangements: with family Additional living arrangements comments: SPOUSE Spiritual care concerns: No Anes - Eval Final PreProcedure Day of Procedure 12/04/23 11:12 Patient weight: overweight Heart: regular rate and rhythm Lungs: clear to auscultation Airway: Mallampati scale class II Neurological: alert and oriented Last oral intake: >/= 8 hours ASA classification: II Emergent: no Anesthetic plan: proceed Anesthesia type and monitoring: general ETT Results Review: All pre-operative results and documents have been reviewed as part of the pre-operative evaluation. Informed Consent: The patient's anesthetic plan and its attendant risks and benefits were discussed with the patient/family/POA. Questions were solicited and answers provided to the satisfaction of the patient/family/POA.
[2023-12-04] MEDS: TRANEXAMIC ACID 1,000MG/ISO100 1,000 MG/100 ML BAG 200 MG IVPB (11:17)
--- NOTE | 2023-12-04 11:18 | WPDHPUPDATE1 ---
History and Physical Update Update Date/Time: 12/04/23 11:18 History and Physical has been reviewed, including an updated exam of the patient. There are NO changes in the patient's condition. Risks, benefits, and alternatives have been discussed and questions answered. Patient agrees to proceed with procedure.
[2023-12-04] MEDS: ceFAZolin 2 GM/D5W 50 ML 2 GM/50 ML BAG IVPB (12:17)
--- NOTE | 2023-12-04 14:54 | SUR.PHASEI ---
PORTABLE XRAY OF RIGHT HIP DONE.
--- NOTE | 2023-12-04 15:02 | P.OP_ITS ---
Procedure Note - Detailed Date of Procedure 12/04/23 Pre-op Diagnosis primary OA right hip Post-op Diagnosis Same Procedure Performed Right Total Hip Arthroplasty Surgeon Rohit Garcia MD Anesthesia General Description of Procedure The patient was given preoperative antibiotics. A general anesthetic was ad ministered. The patient was carefully placed in the lateral decubitus position on the PEG board. The shoulders and hips were carefully positioned for component and leg length positioning reference. The hip was prepped and draped in the usual sterile fashion. A longitudinal incision was created over the posterior aspect of the greater trochanter. Careful dissection was brought down through the deep fascia with electrocautery. A minimally invasive optimized posterior approach to the hip was performed. The short external rotators and capsule were taken down in an L-shaped capsulotomy. The tissue was tagged for later repair using number 2 high strength suture. The femoral neck was measured and taken in situ. The femoral head was removed. The acetabulum was carefully exposed. The inferior capsule was released. The labrum was resected. The acetabulum was sequentially reamed to the intended cup size. The cup was impacted into position with excellent press-fit. Typical anatomic landmarks, including the bony contact points as well as the inferior transverse acetabular ligament were used to confirm cup positioning with preoperative templating. Attention was turned to the femur, which was carefully exposed. The hip was reamed and then broached sequentially. Excellent press-fit was obtained with the broach. The hip was trialed. Measurements were utilized, including the less er trochanter as well as the center of the femoral head and the tip of the trochanter, and excellent assessment of the offset and leg lengths were confirmed. The real component was impacted into position. Trialing confirmed appropriate leg length and offset with soft tissue balancing as well apparent feel of the leg, both at the knee and the heel. Soft tissues were assessed using the the iliotibial band. Reduction of the posterior capsule and external rotators were also used as a secondary assessment. The hip was copiously irrigated with pulsatile lavage antibiotic solution periodically throughout the procedure. The real components were then assembled and reduced. The hip was stable throughout typical maneuvers, including extension, external rotation to 70 degrees, the position of sleep as well as flexion to 90 degrees with internal rotation past 45 degrees. The shake test confirmed stability without impingement. Osteophytes were removed as necessary. The short external rotat ors and capsule were repaired back to the posterior trochanter through drill holes. The deep fascia was repaired with running number 2 Quill suture, followed by 0 Stratafix suture and 2-0 Stratafix suture in the dermis. Steri- Strips were placed on the skin, followed by a sterile silver occlusive dressing. There were no complications. Meticulous hemostasis was maintained with the AquaMantys device. The patient was brought to the recovery room in stable condition. There were no complications. Implants The Accolade II hip stem, 132 degree size 7 , was utilized with excellent press-fit. The 58 mm Trident II acetabular component was impacted with excellent press-fit stability. The +0, 36 mm Biolox ceramic femoral head was utilized. Estimated Blood Loss 200 Drains No Packing No Pathology None sent Complications No immediate complications Condition Stable Disposition PACU [facility] Billing Surgery - Charge Forward: Surgery Billing
[2023-12-04] MEDS: fentaNYL CITRATE INJ (*CRX) 100 MCG/2 ML VIAL 25 MCG IV PUSH ×6 (15:15→16:08)
[2023-12-04 16:58] LABS: Hematocrit 44.9 % (42.0-52.0)
[2023-12-04] MEDS: oxyCODONE HCL (*CRX) 5 MG TAB IR 10 MG PO ×2 (17:29→21:06)
[2023-12-04] MEDS: ASPIRIN 81 MG ENTERIC TABLET PO (17:30)
[2023-12-04] MEDS: SENNA/DOCUSATE SODIUM TABLET 2 TAB PO (17:30)
[2023-12-04] MEDS: ceFAZolin 1 GM/NS 50 ML 1 GM/50 ML BAG IVPB (20:30)
[2023-12-04] MEDS: LOVASTATIN 20 MG TABLET PO (20:30)
[2023-12-04] MEDS: ONDANSETRON INJ 4 MG/2 ML VIAL IV PUSH (21:08)
[2023-12-05 02:02] VITALS: BP 114/73; PULSE 74; RESP 16; TEMP 36.3; O2SAT 98
[2023-12-05] MEDS: oxyCODONE HCL (*CRX) 5 MG TAB IR 10 MG PO (04:08)
[2023-12-05] MEDS: ceFAZolin 1 GM/NS 50 ML 1 GM/50 ML BAG IVPB (04:09)
[2023-12-05] MEDS: ONDANSETRON INJ 4 MG/2 ML VIAL IV PUSH ×2 (04:54→08:23)
[2023-12-05 06:02] VITALS: BP 114/73; PULSE 74; RESP 16; TEMP 36.3; O2SAT 98
[2023-12-05 07:05] LABS: Basophils Percent Auto 0.2 % (0.2-1.2); Hematocrit 43.1 % (42.0-52.0); Hemoglobin 14.2 g/dL (14.0-18.0); Immature Granulocyte Percent A 0.6 % (0-0.5); Lymphocytes Absolute Auto 0.99 K/mm3 (0.9-3.2); Mean Corpuscular HGB Conc 32.9 g/dl (32-36); Mean Corpuscular Hemoglobin 31.4 pg (26-34); Mean Corpuscular Volume 95.4 fl (80-100); Mean Platelet Volume 9.5 fl (7.4-10.4); Monocytes Absolute Auto 1.1 K/mm3 (0.1-0.6); Monocytes Percent Auto 6.9 % (2.6-8.5); Neutrophils Absolute Auto 14.4 K/mm3 (1.3-6.7); Neutrophils Percent Auto 86.3 % (45.5-73.1); Platelet Count Result 199 k/mm3 (150-375); Red Blood Count 4.52 M/mm3 (4.6-6.20); Red Cell Distribution Width 12.6 % (11.5-14.5); White Blood Count 16.6 K/mm3 (4.5-10.0)
[2023-12-05 07:15] LABS: Anion Gap 5 mmol/L (8-16); Blood Urea Nitrogen 19 mg/dL (9-20); Calcium 8.6 mg/dL (8.4-10.2); Carbon Dioxide 27 mmol/L (22-30); Chloride 102 mmol/L (98-107); Estimated CRCL calculation 92 ml/min; Estimated Glomerular Filt Rate > 60; Glucose 127 mg/dL (65-110); Potassium 4.8 mmol/L (3.4-5.0); Sodium 134 mmol/L (137-145)
--- NOTE | 2023-12-05 08:05 | WPDANESPN ---
Anes - Prog Note Post-Op Date/Time: 12/05/23 08:05 Vital Signs: Last Vital Signs Temp 36.3 C L 12/05/23 06:02 Pulse 74 12/05/23 06:02 Resp 16 12/05/23 06:02 BP 114/73 12/05/23 06:02 Pulse Ox 98 12/05/23 06:02 O2 Del Method Room Air 12/04/23 20:00 O2 Flow Rate 8 12/04/23 15:20 Pain Score (VAS): 0 I/O: Intake & Output 12/04/23 12/05/23 12/05/23 23:59 07:59 15:59 Intake Total 1170 Output Total 450 Balance 1170 -450 Laboratory Tests 12/05/23 06:16 12/05/23 06:16 12/04/23 12/05/23 16:52 06:16 WBC 16.6 H RBC 4.52 L Hgb 15.0 14.2 Hct 44.9 43.1 MCV 95.4 MCH 31.4 MCHC 32.9 RDW 12.6 Plt Count 199 MPV 9.5 Immature Gran % (Auto) 0.6 H Neut % (Auto) 86.3 H Lymph % (Auto) 6.0 L [place] % (Auto) 6.9 Eos % (Auto) 0.0 Baso % (Auto) 0.2 Lymph # (Auto) 0.99 [place] # (Auto) 1.1 H Eos # (Auto) 0.0 Baso # (Auto) 0.0 Abs Immat Gran (auto) 0.10 H Absolute Neuts (auto) 14.4 H Absolute Nucleated RBC 0.0 Nucleated RBC % 0.0 Sodium 134 L Potassium 4.8 Chloride 102 Carbon Dioxide 27 Anion Gap 5 L BUN 19 Creatinine 0.70 Estim Creat Clear Calc 92 Estimated GFR > 60 Glucose 127 H Calcium 8.6 Patient Feedback: Patient satisfied with anesthetic care.
[2023-12-05] MEDS: polyethylene glycoL 3350 17 GM POWD.PACK PO (08:16)
[2023-12-05] MEDS: predniSONE 5 MG TABLET PO (08:16)
[2023-12-05] MEDS: SENNA/DOCUSATE SODIUM TABLET 2 TAB PO (08:16)
[2023-12-05] MEDS: ASPIRIN 81 MG ENTERIC TABLET PO (08:16)
[2023-12-05] MEDS: oxyCODONE HCL (*CRX) 5 MG TAB IR PO (08:19)
== END 2023-12-05 12:00 | disposition home or self-care (01) ==
LOC: ANHSURGERY 14:37 → ANH3MEDSUR 16:24
PROVIDERS: PCP Internal Medicine; Visit Provider Orthopaedic Surgery
PROC: (CPT 27130; principal; 2023-12-04 12:00)
DX: M16.11 Unilateral primary osteoarthritis, right hip (principal); E78.00 Pure hypercholesterolemia, unspecified
CPT/HCPCS: 27130; 36415; 73502; 80048; 80307; 83036; 85014; 85018; 85025; 86850; 86900; 86901; 87081; 97110; 97161; 97165; 97530; 97535; A9270; C1776; J0171; J0330; J0690; J1100; J1170; J1885; J2250; J2270; J2371; J2405; J2704; J2795; J3010; J7120; J7512

== ENCOUNTER 2023-12-22 14:56 | Outpatient (CLI) | payer MEDICARE, SELFPAY ==
--- NOTE | ~2023-12-22 | XR_ITS ---
EXAMINATION: XR hip RT 2V w AP pelvis DATE: 12/22/2023 15:20 INDICATION: Presence of right artificial hip joint. TECHNIQUE: An anteroposterior view of the pelvis and 2 views of right hip were obtained. COMPARISON: Right hip radiographs 12/04/2023, pelvis radiograph 08/30/2023 FINDINGS: There are bilateral total hip arthroplasties in near-anatomic alignment. No fracture. No pe riprosthetic lucency to suggest loosening or infection. There is moderate lumbar spondylosis. IMPRESSION: 1. Bilateral total hip arthroplasties in near-anatomic alignment. Reviewed, dictated and finalized at location E. OVEN TENDER
== END 2023-12-22 14:57 | disposition home or self-care (01) ==
PROVIDERS: PCP Internal Medicine; Visit Provider Orthopaedic Surgery
DX: Z96.641 Presence of right artificial hip joint (principal)
CPT/HCPCS: 73502

== ENCOUNTER 2024-03-24 14:39 | Emergency (ER) | payer MEDICARE, SELFPAY ==
[2024-03-24 14:42] VITALS: BP 148/84; PULSE 93; RESP 16; TEMP 36.5; O2SAT 100
[2024-03-24] MEDS: GLUCAGON FOR INJ 1 MG VIAL IV PUSH (15:18)
[2024-03-24 15:21] VITALS: BP 129/79; PULSE 94; RESP 18; TEMP 36.8; O2SAT 100
--- NOTE | 2024-03-24 15:50 | PC.NURSE ---
Pt tolerating Sprite Soda, pt voices able to swallow without difficulty, belching without any difficulty. Pt states feels better. Dr. Collier informed
--- NOTE | 2024-03-24 16:14 | ED.GENADULT ---
HPI - General Adult General Chief complaint: Skin/Abscess/Foreign Body Stated complaint: food bolus in esophagus Time Seen by Provider: 03/24/24 14:52 History of Present Illness HPI narrative: Patient is a 73-year-old male who presents ER with inability to swallow. Ongoing for 1 hour. Occurred after trying to swallow some beef stew. He reports he thought he had been showing it properly. Reports intermittent food bolus over last several months. He has never had an EGD. No weight loss. Patient is currently unable to swallow his own spit as comes right back up. No alleviating factors. Related Data Home Medications Medication Instructions Recorded Confirmed lovastatin 20 mg tablet 20 mg PO HS 04/13/23 01/25/24 acetaminophen 500 mg capsule 1,000 mg PO Q6H PRN Pain 06/12/23 01/25/24 calcium carbonate (Tums) 200 mg PO PRN PRN Indigestion 06/14/23 01/25/24 Allergies Allergy/AdvReac Type Severity Reaction Status Date / Time No Known Allergies Allergy Verified 01/22/24 09:50 Review of Systems Review of Systems: All systems reviewed & are unremarkable except as noted in HPI and below [facility] Past Medical History Medical History High cholesterol History of stress test (~2002) Kidney stones Surgical History Surgical History History of appendectomy (~1961) History of hemorrhoidectomy 06/21/2023 - rectal EUA, rubber-band ligation internal hemorrhoids all 3 complexes History of hernia repair (~1960) History of total left hip arthroplasty (~07/11/23) Hx of excision of dermoid cyst (~2009) Infected Cyst - Back Status post total hip replacement, right (~12/04/23) Family History Family History Mother Colon cancer Father Heart disease Social History Social History Smoking status: Never smoker Additional smoking assessment comments: DENIES ANY FORM OF TOBACCO USE Alcohol intake: current Drinks per week: 10 Substance use: never Substance use type: does not use Do You Feel Safe in your Home?: Yes Lack of Transportation: No Lack of Food: Never True Current Housing: I Have Housing Concerned About Future Housing: No Difficulty Paying Gas/Electric Bills: No Difficulty Paying for Meds: No Currently Unemployed: No Education: Master's Degree or Higher Difficulty w/ Childcare or Family Care: No Living arrangements: with family Additional living arrangements comments: SPOUSE Spiritual care concerns: No Exam Narrative: GENERAL: Well-appearing, well-nourished, and in no acute distress. HEAD: Normocephalic, atraumatic. ENT: Mucous membranes moist. NECK: Supple. CHEST: Clear to auscultation. No respiratory distress. HEART: Regular rate and rhythm. Normal peripheral pulses. ABDOMEN: Soft, nontender, nondistendeds. EXTREMITIES: Normal range of motion. No edema. SKIN: Warm, dry, no rash. NEURO: Alert and oriented x3. PSYCH: Normal mood and affect. Course Course Emergency Course: Patient resting comfortably. Received IV glucagon and patient's food bolus resolved itself. Drinking soda without issue. Discharge home. Vital Signs Vital signs: Vital Signs Temperature 97.7 F 03/24/24 14:42 Pulse Rate 93 03/24/24 14:42 Respiratory Rate 16 03/24/24 14:42 Blood Pressure 148/84 H 03/24/24 14:42 Pulse Oximetry 100 03/24/24 14:42 Oxygen Delivery Room Air 03/24/24 14:42 Temperature 97.9 F 03/24/24 16:33 Pulse Rate 78 03/24/24 16:33 Respiratory Rate 16 03/24/24 16:33 Blood Pressure 130/88 03/24/24 16:33 Pulse Oximetry 97 03/24/24 16:33 Oxygen Delivery Room Air 03/24/24 14:42 Medical Decision Making Vital Signs Vital Signs: Vital Signs Temperature 97.7 F 03/24/24 14:42 Pulse Rate 93 04
[2024-03-24 16:33] VITALS: BP 130/88; PULSE 78; RESP 16; TEMP 36.6; O2SAT 97
== END 2024-03-24 16:36 | disposition home or self-care (01) ==
PROVIDERS: Emergency Provider Emergency Medicine; PCP Internal Medicine
DX: T18.128A Food in esophagus causing other injury, initial encounter (principal); E78.00 Pure hypercholesterolemia, unspecified; Z87.442 Personal history of urinary calculi; Z96.643 Presence of artificial hip joint, bilateral; W44.F3XA Food entering into or through a natural orifice, initial encounter
CPT/HCPCS: 96374; 99284; J1610

== ENCOUNTER 2024-05-08 09:31 | Day surgery (SDC) | payer MEDICARE, SELFPAY ==
[2024-04-26 09:41] VITALS: BMI 29.9
[2024-04-30 12:59] VITALS: BMI 29.9
[2024-05-08 10:52] VITALS: BP 132/77; PULSE 72; RESP 18; TEMP 36.6; O2SAT 98; BMI 29.6
[2024-05-08] MEDS: LACTATED RINGERS 1,000 ML 150 ML IV CONT (10:58)
--- NOTE | 2024-05-08 10:58 | P.PNAN_ITS ---
Anes - Eval Pre Procedure Procedure: Operation Date: 05/08/24 11:30 Proposed Procedures p Esophagogastroduodenoscopy - Fermin Purvis MD Date/Time: 05/08/24 10:58 Pre Op Diagnosis: Dysphagia, Food in Esophagus Patient Data Age: 73 Gender: M Height: 1.83 m Weight: 99.1 kg Last Vital Signs Temp 98 F 05/08/24 10:52 Pulse 72 05/08/24 10:52 Resp 18 05/08/24 10:52 BP 132/77 05/08/24 10:52 Pulse Ox 98 05/08/24 10:52 O2 Del Method Room Air 05/08/24 10:52 Allergies Allergy/AdvReac Type Severity Reaction Status Date / Time No Known Allergies Allergy Verified 05/08/24 10:50 Home Medications Medication Instructions Recorded Confirmed Type lovastatin 20 mg tablet 20 mg PO HS 04/13/23 05/08/24 History acetaminophen 500 mg capsule 1,000 mg PO Q6H PRN Pain 06/12/23 05/08/24 History calcium carbonate (Tums) 200 mg PO PRN PRN Indigestion 06/14/23 05/08/24 History Patient hx anesthesia problems: none Family hx anesthesia problems: none Results Review: All pre-operative results and documents have been reviewed as part of the pre- operative evaluation. [facility] Past Medical History Medical History (Updated 05/08/24 @ 11:02 by Torres Lea Jr., CRNA) Dysphagia EtOH dependence High cholesterol History of stress test (~2002) Kidney stones Overweight (BMI 25.0-29.9) Primary osteoarthritis of both hips Surgical History Surgical History History of appendectomy (~1961) History of hemorrhoidectomy 06/21/2023 - rectal EUA, rubber-band ligation internal hemorrhoids all 3 complexes History of hernia repair (~1960) History of total left hip arthroplasty (~07/11/23) Hx of excision of dermoid cyst (~2009) Infected Cyst - Back Status post total hip replacement, right (~12/04/23) Family History Family History Mother Colon cancer Father Heart disease Social History Social History Smoking status: Never smoker Additional smoking assessment comments: DENIES ANY FORM OF TOBACCO USE Alcohol intake: current Drinks per week: 10 Substance use: never Substance use type: does not use Do You Feel Safe in your Home?: Yes Lack of Transportation: No Lack of Food: Never True Current Housing: I Have Housing Concerned About Future Housing: No Difficulty Paying Gas/Electric Bills: No Difficulty Paying for Meds: No Currently Unemployed: No Education: Master's Degree or Higher Difficulty w/ Childcare or Family Care: No Living arrangements: with family Additional living arrangements comments: SPOUSE Spiritual care concerns: No Exam Day of Procedure 05/08/24 10:58 Patient weight: overweight
[2024-05-08] MEDS: AMPICILLIN 2 GM/NS 100 ML 2 GM/100 ML BAG IVPB (11:10)
--- NOTE | 2024-05-08 11:32 | WPDHPUPDATE1 ---
History and Physical Update Update Date/Time: 05/08/24 11:32 History and Physical has been reviewed, including an updated exam of the patient. There are NO changes in the patient's condition. Risks, benefits, and alternatives have been discussed and questions answered. Patient agrees to proceed with procedure.
[2024-05-08 12:27] VITALS: BP 130/79; PULSE 76; RESP 16; O2SAT 99
[2024-05-08 12:37] VITALS: BP 129/76; PULSE 70; RESP 16; O2SAT 96
[2024-05-08 12:47] VITALS: BP 122/90; PULSE 76; RESP 18; O2SAT 98
--- NOTE | 2024-05-08 13:08 | WPDANESPN ---
Anes - Prog Note Post-Op Date/Time: 05/08/24 13:08 Cardiovascular status: normal Respiratory status: normal Airway patency: baseline Mental status: baseline Post-Op hydration status: normal Vital Signs: Last Vital Signs Temp 36.6 C 05/08/24 10:52 Pulse 72 05/08/24 10:52 Resp 18 05/08/24 10:52 BP 132/77 05/08/24 10:52 Pulse Ox 98 05/08/24 10:52 O2 Del Method Room Air 05/08/24 10:52 Pain Score (VAS): 0/10 I/O: Intake & Output 05/07/24 05/08/24 05/08/24 23:59 07:59 15:59 Intake Total 500 Balance 500 Patient Feedback: Patient satisfied with anesthetic care.
--- NOTE | 2024-05-08 13:14 | SUR.PHASEII ---
1300; PT READY FOR DISCHARGE. WAITING TO SPEAK WITH DR PRABHAKAR. HE IS IN PROCEDURE. SPOUSE AT BEDSIDE.
== END 2024-05-08 13:15 | disposition home or self-care (01) ==
PROVIDERS: PCP Internal Medicine; Visit Provider Internal Medicine Gastroenterology
PROC: 0DJ08ZZ Inspection of Upper Intestinal Tract, Via Natural or Artificial Opening Endoscopic (ICD-10-PCS; CPT 43235; principal; 2024-05-08 11:30)
DX: Q39.4 Esophageal web (principal); R13.19 Other dysphagia; K44.9 Diaphragmatic hernia without obstruction or gangrene
CPT/HCPCS: 43450

== ENCOUNTER 2025-01-16 09:00 | Outpatient (RCR) | payer MEDICARE, SELFPAY ==
--- NOTE | 2024-12-25 10:06 | OPREHPOC ---
Outpatient Therapy Plan of Care This is a Multidisciplinary Plan of Care that may contain components documented by all disciplines (PT, OT, and ST.) PT Problem 1 PT Problem #1 Knowledge Deficit PT Goal 1 Goal / Goal Update 1. Patient will perform independent HEP Target Visit 2 PT Problem 2 PT Problem #2 Pain PT Goal 1 Goal / Goal Update 1. Pain no higher than 1/10 for at least 1 week Target Visit 4 PT Problem 3 PT Problem #3 Impaired Strength PT Goal 1 Goal / Goal Update 1. L MMT 5/5 in all shoulder planes to reduce pain with activity Target Visit 4
--- NOTE | 2024-12-25 10:06 | PTOPEVAL1 ---
Assessment and note entered by Allyn Jorge DPT Evaluation Information Assessment Status Evaluation ICD-10 Condition Codes (PT) Pain in left shoulder M25.512 Subjective Information Pt reports L shoulder pain. Has been gradually worsening over the past 6-12 months. Highest pain 4/10 and lowest 0/10. Denies n/t. Sometimes a change in weather will increase pain. Sometimes has pain at end ranges of motion. Sometimes laying on his left side causes pain. Pt is R handed. Thinks he is still able to use his L shoulder his normal amount but does have the pain. Pt is independent with ADL's. Meloxicam helps with pain. Returns to MD as needed. Patient goal: reduce the frequency of pain, not have it get any worse Reported Pain Level Pain Score 0: Self Report Assessment PT Clinical Summary The patient is presenting to skilled therapy with a history of L shoulder pain. He presents with mild strength and range of motion impairments, and pain with palpation. These impairments are contributing to his pain with activities like reaching at end ranges and sleeping on his L side. He will benefit from skilled therapy to address pain and teach thorough HEP in order to eliminate pain and restore full function. Plan of Care Interventions Electrical Stimulation,Hot Pack/Cold Pack,Manual Therapy,Neuro Re-education,Patient/Caregiver Education,Therapeutic Activities,Therapeutic Exercise PT Services Indicated Yes Treatment Frequency and 1 time a week for 4 visits Duration These treatments will address the objective and functional deficits as defined above. The patient will be advanced safely and appropriately in order for the patient to progress towards his/her prior level of function. Additional exercises will be introduced and as well as a comprehensive home exercise program upon discharge, if needed, ?to ensure carryover of functional gains achieved in the clinic. This treatment plan has been reviewed and agreement upon by the patient.
--- NOTE | 2025-01-16 09:31 | OPREHPOC ---
Outpatient Therapy Plan of Care This is a Multidisciplinary Plan of Care that may contain components documented by all disciplines (PT, OT, and ST.) PT Problem 1 PT Problem #1 Knowledge Deficit PT Goal 1 Goal / Goal Update 1. Patient will perform independent HEP Target Visit 2 Progress Met PT Problem 2 PT Problem #2 Pain PT Goal 1 Goal / Goal Update 1. Pain no higher than 1/10 for at least 1 week Target Visit 4 Progress Partially Met PT Problem 3 PT Problem #3 Impaired Strength PT Goal 1 Goal / Goal Update 1. L MMT 5/5 in all shoulder planes to reduce pain with activity Target Visit 4 Progress Met
--- NOTE | 2025-01-16 09:31 | PTOPDC ---
Assessment and note entered by Allyn Jorge DPT Evaluation Information Assessment Status Discharge ICD-10 Condition Codes (PT) Pain in left shoulder M25.512 Subjective Information Pt reports L shoulder pain. Has been gradually worsening over the past 6-12 months. Highest pain 4/10 and lowest 0/10. Denies n/t. Sometimes a change in weather will increase pain. Sometimes has pain at end ranges of motion. Sometimes laying on his left side causes pain. Pt is R handed. Thinks he is still able to use his L shoulder his normal amount but does have the pain. Pt is independent with ADL's. Meloxicam helps with pain. Returns to MD as needed. Patient goal: reduce the frequency of pain, not have it get any worse Reported Pain Level Pain Score 0: Self Report Assessment PT Clinical Summary The patient has made excellent progress in therapy . He reports greatly decreased pain overall and demonstrates full strength and motion. No functional limitations. Due to his progress, discharge is recommended at this time and he has been educated to continue HEP and follow up with MD and/or PT as needed. Plan of Care PT Services Indicated No
--- NOTE | 2025-01-16 09:33 | PTOPDC ---
Assessment and note entered by Allyn Jorge DPT Evaluation Information Assessment Status Discharge ICD-10 Condition Codes (PT) Pain in left shoulder M25.512 Subjective Information Highest pain recently 2/10 for a very brief time. Has had multiple days without pain at all. Not limited in any activities currently. Reported Pain Level Pain Score 0: Self Report Assessment PT Clinical Summary The patient has made excellent progress in therapy . He reports greatly decreased pain overall and demonstrates full strength and motion. No functional limitations. Due to his progress, discharge is recommended at this time and he has been educated to continue HEP and follow up with MD and/or PT as needed. Plan of Care PT Services Indicated No
== END 2025-01-17 09:41 | disposition home or self-care (01) ==
LOC: ANHGOSHPT 09:00
PROVIDERS: PCP Internal Medicine; Visit Provider Orthopaedic Surgery
DX: M25.512 Pain in left shoulder (principal)
CPT/HCPCS: 97110; 97140; 97161; 97530